=== PATIENT | female | born 1980 | race Caucasian/White ===

== ENCOUNTER 2016-12-04 19:23 | Emergency (ER) | payer OTHER ==
[~2016-12-04] VITALS: Ht 160 cm; Wt 88.5 kg
[~2016-12-04 19:23] MED LIST: AMOXICILLIN500 MG PO; ANAPROX DS550 MG PO; CATAFLAM50 MG PO; CIPRO500 MG PO; CLARITIN10 MG PO; COMPAZINE10 MG PO; DAYPRO600 M1 PO; FLAGYL500 MG PO; FLEXERIL5 MG PO; Fioricet 325 MG1 TAB PO; LISINOPRIL5 MG PO; LOMOTIL 0.025 M1 TA1 PO; MOTRIN800 MG PO; NAPROSYN500 MG PO; NKHM; NORCO 325 MG-51 TAB PO; Nizoral 2%15 GM PO; PEN-VEE K500 MG PO; ROBAXIN750 MG PO; TOPAMAX50 MG PO; TRAMADOL HCL50 MG PO; TRIMOX500 MG PO; TYLENOL W/CODEI1 TA2 PO; VIBRA-TAB100 MG PO; ZITHROMAX Z PA250 MG PO; ZOFRAN ODT4 MG SL; ZOFRAN4 MG PO
[2016-12-04 19:30] VITALS: BP 142/92
[2016-12-04] MEDS ORDERED: NAPROSYN500 MG PO (19:36)
[2016-12-04] MEDS ORDERED: HYDROCODONE BIT1 T11 PO (19:55)
== END 2016-12-04 20:07 | disposition home or self-care (01) ==
LOC: ED 19:23
DX: S82.831A Other fracture of upper and lower end of right fibula, initial encounter for closed fracture (principal); R03.0 Elevated blood-pressure reading, without diagnosis of hypertension; F17.200 Nicotine dependence, unspecified, uncomplicated; W10.9XXA Fall (on) (from) unspecified stairs and steps, initial encounter; Y93.9 Activity, unspecified; Y92.9 Unspecified place or not applicable; Y99.9 Unspecified external cause status

== ENCOUNTER 2017-05-09 14:51 | Emergency (ER) | payer OTHER ==
[~2017-05-09] VITALS: Ht 160 cm; Wt 88.5 kg
[~2017-05-09 14:51] MED LIST changes: +HYDROCODONE BIT1 T11 PO
[2017-05-09 14:59] VITALS: BP 122/88
== END 2017-05-09 15:38 | disposition home or self-care (01) ==
LOC: ED 14:51
DX: S61.411A Laceration without foreign body of right hand, initial encounter (principal); F17.200 Nicotine dependence, unspecified, uncomplicated; W26.0XXA Contact with knife, initial encounter; Y93.89 Activity, other specified; Y92.89 Other specified places as the place of occurrence of the external cause; Y99.8 Other external cause status

== ENCOUNTER 2018-04-21 19:22 | Emergency (ER) | payer MEDICAID ==
[~2018-04-21] VITALS: Ht 160 cm; Wt 86.2 kg
[2018-04-21 19:22] VITALS: BP 125/50
[2018-04-21] MEDS ORDERED: NAPROSYN500 MG PO (19:29)
[2018-04-21] MEDS ORDERED: PENICILLIN VK500 MG PO (19:29)
== END 2018-04-21 19:44 | disposition home or self-care (01) ==
LOC: ED 19:22
DX: K04.7 Periapical abscess without sinus (principal)

== ENCOUNTER 2018-04-25 21:06 | Emergency (ER) | payer OTHER, MEDICAID ==
[~2018-04-25] VITALS: Ht 160 cm; Wt 86.2 kg
[~2018-04-25 21:06] MED LIST changes: +PENICILLIN VK500 MG PO
[2018-04-25 21:08] VITALS: BP 116/75
[2018-04-25] MEDS ORDERED: Motrin,Rufen800 MG PO (23:11)
[2018-04-25] MEDS ORDERED: PREDNISONE10 MG PO (23:11)
[2018-04-25] MEDS ORDERED: CYCLOBENZAPRINE5 M3 PO (23:11)
== END 2018-04-25 23:54 | disposition home or self-care (01) ==
LOC: ED 21:06
DX: S29.012A Strain of muscle and tendon of back wall of thorax, initial encounter (principal); F17.200 Nicotine dependence, unspecified, uncomplicated; Z79.2 Long term (current) use of antibiotics; Z79.1 Long term (current) use of non-steroidal anti-inflammatories (NSAID); X50.0XXA Overexertion from strenuous movement or load, initial encounter; Y93.89 Activity, other specified; Y92.89 Other specified places as the place of occurrence of the external cause; Y99.8 Other external cause status

== ENCOUNTER 2019-03-31 17:47 | Emergency (ER) | payer OTHER ==
[~2019-03-31] VITALS: Ht 160 cm; Wt 83.9 kg
--- NOTE | ~2019-03-31 | EKG ---
[place], [place] ELECTROCARDIOGRAM REPORT NAME: FALGUNI JIMENEZ UNIT #: [id number] ROOM: DOCTOR: EPIPHANY DRAFT REPORT BIRTHDATE: [birth year] [facility] Test Date: 2019-03-31 Test Time: 18:59:14 Pat Name: FALGUNI JIMENEZ Department: er Room: 1 Gender: F Software Support Representative: : 1980 Requested By: JOHN SANTANA DNP Order Number: [id number] Reading MD: Chris Nuñez MD Measurements Intervals [place] Rate: 76 P: 100 MS: 237 QRS: 123 QRSD: 125 T: 20 QT: 454 QTc: 511 Interpretive Statements Right and left arm electrode reversal, interpretation assumes no reversal Sinus rhythm Prolonged MS interval Nonspecific intraventricular conduction delay Borderline T abnormalities, anterior leads Electronically Signed On 04-01-2019 8:13:30 PDT by Chris Nuñez MD CM:EKGRPT:ELECTROCARDIOGRAM REPORT [id number] JOHN SANTANA DNP EPIPHANY DRAFT REPORT JOHN SANTANA DNP
[~2019-03-31 17:47] MED LIST changes: +CYCLOBENZAPRINE5 M3 PO; +Motrin,Rufen800 MG PO; +PREDNISONE10 MG PO
[2019-03-31 18:59] LABS: BASO # 0.1 10*3/uL (0.0-0.1); EOS # 0.2 10*3/uL (0.0-0.4); EOS % 2.4 % (1.0-4.0); HEMATOCRIT 36.4 % (37.0-47.0); HEMOGLOBIN 12.2 g/dl (12.0-16.0); LYMPH # 2.4 10*3/uL (1.3-4.4); LYMPH % 39.5 % (27.0-41.0); MEAN CELL VOLUME 91.9 fl (81.0-99.0); MEAN CORPUSCULAR HGB 30.8 pg (27.0-31.0); MEAN CORPUSCULAR HGB CONC 33.5 g/dl (33.0-37.0); MEAN PLATELET VOLUME 10.2 fl (9.6-12.3); MONO # 0.6 10*3/uL (0.1-1.0); MONO % 9.1 % (3.0-9.0); NEUT # 2.9 10*3/uL (2.3-7.9); NEUT % 47.8 % (47.0-73.0); PLATELET COUNT AUTOMATED 198 10*3/uL (130-400); RED BLOOD COUNT 3.96 10*6/uL (4.10-5.10); WHITE BLOOD COUNT 6.2 10*3/uL (4.8-10.8)
[2019-03-31 19:15] LABS: ACT PARTIAL THROMBO TIME 25.3 SECONDS (20.0-32.1); INTERNATIONAL NORM RATIO 0.9 (2.0-3.5)
[2019-03-31 19:23] LABS: ALBUMIN 3.4 gm/dl (3.1-4.5); ALKALINE PHOSPHATASE 79 U/L (45-117); BUN 20 mg/dl (7-24); CHLORIDE 107 mmol/L (98-107); CREATININE 1.14 mg/dL (0.55-1.02); LIPASE 94 U/L (73-393); POTASSIUM 4.1 mmol/L (3.5-5.1); SGOT/AST 28 IU/L (3-35); SGPT/ALT 41 U/L (12-78); SODIUM 138 mmol/L (136-145); TOTAL PROTEIN 7.3 gm/dL (6.4-8.2)
[2019-03-31 19:24] VITALS: BP 120/80
[2019-03-31 19:30] LABS: TROPONIN I < 0.015 ng/ml (<0.045)
[2019-03-31] MEDS ORDERED: NORVASC5 MG PO (20:34)
== END 2019-03-31 20:37 | disposition home or self-care (01) ==
LOC: ED 17:47
PROVIDERS: Nurse Practitioner Family
DX: I10 Essential (primary) hypertension (principal); F17.200 Nicotine dependence, unspecified, uncomplicated; Z79.2 Long term (current) use of antibiotics; Z79.899 Other long term (current) drug therapy; Z90.49 Acquired absence of other specified parts of digestive tract

== ENCOUNTER 2020-02-01 23:38 | Emergency (ER) | payer OTHER ==
[~2020-02-01] VITALS: Ht 160 cm; Wt 86.2 kg
[~2020-02-01 23:38] MED LIST changes: +NORVASC5 MG PO
[2020-02-01 23:55] VITALS: BP 126/70
[2020-02-02] MEDS ORDERED: VISTARIL50 MG PO (00:18)
[2020-02-02] MEDS ORDERED: PREDNISONE10 MG PO (00:18)
== END 2020-02-02 00:45 | disposition home or self-care (01) ==
LOC: ED 23:38
DX: L25.5 Unspecified contact dermatitis due to plants, except food (principal); I10 Essential (primary) hypertension

== ENCOUNTER 2021-01-25 18:45 | Emergency (ER) | payer OTHER ==
[~2021-01-25] VITALS: Wt 95.3 kg
[~2021-01-25 18:45] MED LIST changes: +VISTARIL50 MG PO
[2021-01-25 18:52] VITALS: BP 131/70
== END 2021-01-25 22:44 | disposition home or self-care (01) ==
LOC: ED 18:45
DX: S50.02XA Contusion of left elbow, initial encounter (principal); X58.XXXA Exposure to other specified factors, initial encounter; Y93.89 Activity, other specified; Y92.89 Other specified places as the place of occurrence of the external cause; Y99.8 Other external cause status

== ENCOUNTER 2021-07-26 06:02 | Emergency (ER) | payer OTHER ==
[2021-07-26 06:08] VITALS: BP 114/54
== END 2021-07-26 06:35 | disposition home or self-care (01) ==
LOC: ED 06:02
DX: S61.219A Laceration without foreign body of unspecified finger without damage to nail, initial encounter (principal); Z98.51 Tubal ligation status; Z98.890 Other specified postprocedural states; X58.XXXA Exposure to other specified factors, initial encounter; Y93.89 Activity, other specified; Y92.89 Other specified places as the place of occurrence of the external cause; Y99.8 Other external cause status